=== PATIENT | male | born 1975 | race American Indian/Alaskan Native ===

== ENCOUNTER 2022-05-27 04:32 | Emergency (ER) | payer SELFPAY | END 2022-05-27 05:58 | disposition left against medical advice (07) | LOC: ED 04:32 | DX: R22.43 Localized swelling, mass and lump, lower limb, bilateral (principal); Z53.21 Procedure and treatment not carried out due to patient leaving prior to being seen by health care provider | CPT/HCPCS: 82962; 93005 ==